=== PATIENT | female | born 1970 | race Caucasian/White ===

== ENCOUNTER 2021-09-04 06:50 | Emergency (ER) | payer OTHER ==
[~2021-09-04] VITALS: Ht 160 cm; Wt 80.3 kg
[~2021-09-04 06:50] MED LIST: IBUPROFEN 800800 M1 PO
[2021-09-04 07:39] LABS: URINE CLARITY CLEAR
[2021-09-04 07:46] LABS: URINE COLOR ORANGE
[2021-09-04 07:47] LABS: SQUAMOUS 4-10 Moderate /LPF (0-3)
[2021-09-04 07:48] LABS: BACTERIA-REFLEX >30 Many /HPF (None Seen); CASTS None Seen /LPF (None Seen); CRYSTALS None Seen /LPF (None Seen); MUCUS 0-3 Light strn/LPF (None Seen); URINE WBC-REFLEX 6-15 Few /HPF (0-5)
[2021-09-04 07:57] LABS: ABSOLUTE BASOPHILS 0.1 thou/uL (0.0-0.2); ABSOLUTE EOSINOPHILS 0.2 thou/uL (0.0-0.7); ABSOLUTE LYMPHOCYTES 1.5 thou/uL (0.8-5.3); ABSOLUTE MONOCYTES 0.5 thou/uL (0.0-1.2); ABSOLUTE NEUTROPHILS 7.8 thou/uL (1.6-8.1); BASOPHILS 0.5 %; EOSINOPHILS 1.9 %; HEMATOCRIT 38.1 % (37.0-47.0); HEMOGLOBIN 13.1 gm/dL (12.0-15.0); MCH 29.6 pg (26.0-34.0); MCHC 34.4 g/dL (28.0-37.0); MCV 86.2 fL (80.0-100.0); MONOCYTES 4.8 %; MPV 8.5 fl. (7.2-11.1); NUCLEATED RBCS 0 /100WBC; PLATELET COUNT* 405 thou/uL (150-400); POLYS 77.8 %; RBC 4.42 mil/uL (4.20-5.00); RDW-CV 13.4 % (10.5-14.5); WBC 10.1 thou/uL (4.0-11.0)
[2021-09-04 08:17] LABS: CALCIUM 8.7 mg/dL (8.5-10.1); CREATININE 0.9 mg/dL (0.6-1.3); POTASSIUM 3.5 mmol/L (3.5-5.1)
[2021-09-04 08:21] LABS: ALBUMIN 3.8 g/dL (3.4-5.0); TOTAL PROTEIN 6.7 g/dL (6.4-8.2)
[2021-09-04] MEDS ORDERED: BACTRIM DS TAB1 EAC1 PO (10:08)
[2021-09-04] MEDS ORDERED: HYDROCODON-ACE1 EAC7 PO (10:08)
[2021-09-04] MEDS ORDERED: ZOFRAN ODT4 MG DISSOLVE (10:08)
[2021-09-04 10:15] VITALS: BP 168/76
--- NOTE | 2021-09-04 12:47 | EKG ---
[place] [address] ELECTROCARDIOGRAM REPORT Name: HALIE NUNO Room: 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1970 Requested By: Josr Piedra Order Number: [id number] MD: Ángel Reynoso Measurements Intervals [place] Rate: 49 P: -49 AR: 230 QRS: 19 QRSD: 88 T: 19 QT: 442 QTc: 400 Interpretive Statements Sinus bradycardia Prolonged AR interval Possible anteroseptal infarct, old No previous ECG available for comparison Electronically Signed On 09-04-2021 12:47:29 VISITOR SERVICES SPECIALIST by Ángel Reynoso [email or web address] <ELECTRONICALLY SIGNED> By: Ángel Reynoso MD, [facility] 09/04/21 1247 8 Ángel Reynoso MD, FAC /EPI
== END 2021-09-04 10:15 | disposition home or self-care (01) ==
LOC: M.ERS 06:50
PROVIDERS: Emergency Medicine Emergency Medical Services
DX: N39.0 Urinary tract infection, site not specified (principal); R10.13 Epigastric pain; R10.11 Right upper quadrant pain; Z88.0 Allergy status to penicillin